=== PATIENT | male | born 1975 | race Hispanic/Latino ===

== ENCOUNTER 2020-11-15 16:30 | Emergency (ER) | payer OTHER, BC ==
[2020-11-15 16:38] VITALS: BP 117/87
[2020-11-15] MEDS ORDERED: DIPHtheria,PERTUSSIS(ACELL),TETANUS VACCINE/PF 0.5 ML VIAL IM ONE (16:39)
[2020-11-15] MEDS ORDERED: LIDOCAINE (2%) 20 MG/1 ML VIAL 20 ML MDV INFILTRATI ONE (16:39)
[2020-11-15] MEDS ORDERED: oxyCODONE /ACETAMINOPHEN 5-325MG TAB PO PRN (17:00)
--- NOTE | 2020-11-15 17:27 | XRay Report ---
HISTORY:distal fingertip amputation COMPARISON: None. TECHNIQUE: AP lateral and obliques views were obtained FINDINGS: Bones: No fracture or dislocation. Joint spaces: Distal amputation of the distal tuft third digit noted Soft tissues: No significant abnormality. Additional findings: None. IMPRESSION: 1. Distal tuft amputation. Signer Name: Agustin Torre MD Signed: 11/15/2020 5:23 PM Workstation Name: [id number]
--- NOTE | 2020-11-15 17:42 | Emergency Department Report ---
ED Upper Extremity Inj HPI - General Chief Complaint: Extremity Injury, Upper Stated Complaint: LAC LFT FINGER/EXTREME PAIN Time Seen by Provider: 11/15/20 16:40 Source: patient Mode of arrival: Ambulatory Limitations: No Limitations - History of Present Illness Initial Comments: This pleasant 45-year-old male presents the emerge department chief complaint of an injury to his right middle finger. Patient reports using a drill press when he accidentally hit his finger degloved the tip of the third digit. He denies any other injuries. He is unsure his last tetanus shot. He reports pain is an out of 10 in severity. Described as dull and throbbing. He denies any associated fever, chills, night sweats, headache, dizziness, blurry vision, nausea, vomiting, diarrhea, chest pain, shortness of breath or any other associated symptoms. - Related Data Previous Rx's Medication Instructions Recorded Last Taken Type Oxycodone HCl/Acetaminophen 1 each PO Q6HR PRN #15 tablet 11/15/20 Unknown Rx [Percocet 10/325 mg] cephALEXin [Keflex] 500 mg PO Q6HR #40 cap 11/15/20 Unknown Rx Allergies Allergy/AdvReac Type Severity Reaction Status Date / Time No Known Allergies Allergy Unverified 11/15/20 17:04 ED Review of Systems ROS: Stated complaint: LAC LFT FINGER/EXTREME PAIN Other details as noted in HPI Comment: All other systems reviewed and negative Constitutional: denies: chills, fever Eyes: denies: eye pain, eye discharge, vision change ENT: denies: ear pain, throat pain Respiratory: denies: cough, shortness of breath, wheezing Cardiovascular: denies: chest pain, palpitations Endocrine: no symptoms reported Gastrointestinal: denies: abdominal pain, nausea, diarrhea Genitourinary: denies: urgency, dysuria Musculoskeletal: denies: back pain, joint swelling, arthralgia Skin: denies: rash, lesions Neurological: denies: headache, weakness, paresthesias Psychiatric: denies: anxiety, depression Hematological/Lymphatic: denies: easy bleeding, easy bruising ED Past Medical Hx - Past Medical History Previous Medical History?: Yes Hx Hypertension: Yes - Surgical History Past Surgical History?: Yes Additional Surgical History: back surgery, femur repair - Social History Smoking Status: Never Smoker Substance Use Type: None - Medications Home Medications: Home Medications Medication Instructions Recorded Confirmed Last Taken Type Oxycodone HCl/Acetaminophen 1 each PO Q6HR PRN #15 tablet 11/15/20 Unknown Rx [Percocet 10/325 mg] cephALEXin [Keflex] 500 mg PO Q6HR #40 cap 11/15/20 Unknown Rx ED Physical Exam - General Limitations: No Limitations General appearance: alert, in no apparent distress - Head Head exam: Present: atraumatic, normocephalic - Eye Eye exam: Present: normal appearance, PERRL, EOMI Pupils: Present: normal accommodation - ENT ENT exam: Present: normal exam, normal orophraynx, mucous membranes moist - Neck Neck exam: Present: normal inspection, full ROM. Absent: tenderness, meningismus - Respiratory Respiratory exam: Present: normal lung sounds bilaterally. Absent: respiratory distress, wheezes, rales, rhonchi, stridor - Cardiovascular Cardiovascular Exam: Present: regular rate, normal rhythm. Absent: systolic murmur, diastolic murmur, rubs, gallop - GI/Abdominal GI/Abdominal exam: Present: soft, normal bowel sounds - Rectal Rectal exam: Present: deferred - Extremities Exam Extremities exam: Present: normal inspection, tenderness (distal tuft amputation just below the nailbed with complete anputation of the fingernail of the right 4rd digit. no active bleeding. nop obvious exposed bone. ) - Back Exam Back exam: Present: normal inspection - Neurological Exam Neurological exam: Present: alert, oriented X3 - Psychiatric Psychiatric exam: Present: normal affect, normal mood - Skin Skin exam: Present: warm, dry, intact, normal color. Absent: rash ED Course Vital Signs 11/15/20 16:32 Temperature 98.6 F Pulse Rate 94 H Respiratory 18 Rate Blood Pressure 117/87 O2 Sat by Pulse 100 Oximetry - Consultations Consultation #1: 11/15/20 18:[address] Carter (Orthopedic Surgery) he stated the patient could be discharged with abx and pain medications and follow up in his office. he agreed that the finger tip was not a candidate for reimplantation. ED Medical Decision Making - Radiology Data Radiology results: report reviewed XRay Report Signed Patient: USHA SANTOS MR #: [id number] : 1975 Acct:[id number] Age/Sex: 45 / M ADM Date: 11/15/20 Loc: ED Attending Dr: Ordering Physician: KELLY TELLO Date of Service: 11/15/20 Procedure(s): XR finger(s) 2+V RT Accession Number(s): [id number] cc: KELLY TELLO Fluoro Time In Minutes: HISTORY:distal fingertip amputation COMPARISON: None. TECHNIQUE: AP lateral and obliques views were obtained FINDINGS: Bones: No fracture or dislocation. Joint spaces: Distal amputation of the distal tuft third digit noted Soft tissues: No significant abnormality. Additional findings: None. IMPRESSION: 1. Distal tuft amputation. Signer Name: Agustin Torre MD Signed: 11/15/2020 5:23 PM Workstation Name: [id number] Transcribed By: JOSÉ MIGUEL Dictated By: Agustin Torre MD Electronically Authenticated By: Agustin Torre MD Signed Date/Time: 11/15/20 1723 - Medical Decision Making Patient presented emergency department the degloving injury of his right middle finger. The pain was controlled with a digital block. The wound was copiously irrigated and cleaned. The patient was given IV Ancef and tetanus was updated. Unfortunately the fingertip was dusky and unable to be reimplanted it. Discussed with Ortho who agreed. Discussed with attending who agreed. The patient understood that unfortunately we would not be able to reattach his finger. He was given pain medication, oral antibiotics and close follow-up with the orthopedic surgeon. He instructed to return the emerge part immediately if he develops any change or worsening symptoms. He verbalized understanding the diagnosis, treatment and follow-up instructions and all his questions were answered. - Differential Diagnosis Laceration, open fracture, abrasion, degloving Critical care attestation.: If time is entered above; I have spent that time in minutes in the direct care of this critically ill patient, excluding procedure time. ED Disposition Clinical Impression: Finger laceration with complication Qualifiers: Encounter type: initial encounter Qualified Code(s): S61.219A - Laceration without foreign body of unspecified finger without damage to nail, initial encounter Fingertip amputation Qualifiers: Encounter type: initial encounter Qualified Code(s): S68.119A - Complete traumatic metacarpophalangeal amputation of unspecified finger, initial encounter Disposition: TO HOME OR SELFCARE Is pt being admited?: No Condition: Stable Instructions: Traumatic Finger Amputation Prescriptions: cephALEXin [Keflex] 500 mg PO Q6HR #40 cap Oxycodone HCl/Acetaminophen [Percocet 10/325 mg] 1 each PO Q6HR PRN #15 tablet PRN Reason: Pain Referrals: PRIMARY CAREMD [Primary Care Provider] - 3-5 Days BRIANNA CARTER MD [Staff Physician] - 3-5 Days Forms: Work/School Release Form(ED) Time of Disposition: 18:09
[2020-11-15] MEDS: fentaNYL 100 MCG/2 ML INJ IV ONE ×2 (18:50→18:52)
== END 2020-11-15 19:02 | disposition home or self-care (01) ==
LOC: ED 16:30
DX: S68.112A Complete traumatic metacarpophalangeal amputation of right middle finger, initial encounter (principal); I10 Essential (primary) hypertension; Z98.890 Other specified postprocedural states; Z79.899 Other long term (current) drug therapy; W22.8XXA Striking against or struck by other objects, initial encounter; Y93.89 Activity, other specified; Y92.89 Other specified places as the place of occurrence of the external cause; Y99.8 Other external cause status
CPT/HCPCS: 64450; 73140; 90471; 90715; 96365; 96375; 99283; J0690; J3010